=== PATIENT | male | born 1985 | race Hispanic/Latino ===

== ENCOUNTER 2024-03-27 15:02 | Emergency (ER) | payer OTHER ==
[~2024-03-27] VITALS: Ht 177.8 cm; Wt 92.5 kg
[2024-03-27 16:31] LABS: BASOPHILS # (AUTO) 0.06 K/uL (0.00-0.20); BASOPHILS % (AUTO) 0.6 % (0.0-5.0); HEMATOCRIT 42.8 % (42-54); IMMATURE GRANULOCYTE ABSOLUTE 0.05 K/uL (0-1); LYMPHOCYTES # (AUTO) 1.7 K/uL (1.0-4.8); LYMPHOCYTES % (AUTO) 16.8 % (21.0-51.0); MEAN CORPUSCULAR HEMOGLOBIN 27.3 pg (27.0-33.0); MEAN CORPUSCULAR HGB CONC 32.2 g/dL (32.0-36.0); MEAN CORPUSCULAR VOLUME 84.6 fL (79-99); MONOCYTES # (AUTO) 0.6 K/uL (0.1-1.0); MONOCYTES % (AUTO) 6.1 % (3.0-13.0); NEUTROPHILS # (AUTO) 7.5 K/uL (1.8-7.7); PLATELET COUNT (AUTO) 253 K/uL (130-400); RED BLOOD CELL COUNT(AUTO) 5.06 MIL/uL (4.50-6.20); RED CELL DISTRIBUTION WIDTH 12.5 % (11.0-15.5)
[2024-03-27 16:40] LABS: CREATININE 1.3 mg/dL (0.5-1.3)
[2024-03-27] MEDS: KETOROLAC 15MG/ML VIAL (15MG/ML) IM ONE (18:02)
[2024-03-27 18:22] LABS: APPEARANCE,URINE CLEAR (CLEAR); BILIRUBIN,URINE NEGATIVE (NEGATIVE); COLOR,URINE LIGHT-YELLOW (YELLOW); GLUCOSE, URINE (UA) NEGATIVE (NEGATIVE); KETONES,URINE NEGATIVE (NEGATIVE); LEUKOCYTE ESTERASE ,URINE NEGATIVE Leu/uL (NEGATIVE); NITRATE,URINE NEGATIVE (NEGATIVE); OCCULT BLOOD,URINE LARGE (NEGATIVE); PROTEIN,URINE 10 mg/dL (NEGATIVE); UROBILINOGEN,URINE 0.2 mg/dL (0.2-1.0)
[2024-03-27 18:23] LABS: ADD UA MICROSCOPIC YES
[2024-03-27 18:29] LABS: BACTERIA,URINE RARE /HPF (None Seen); MUCUS,URINE RARE LPF (None Seen); RBC,URINE >100 /HPF (0-1)
[2024-03-27] MEDS ORDERED: KETO10TA2 PO (18:52)
[2024-03-27] MEDS ORDERED: TAMS-1 PO (18:52)
[2024-03-27] MEDS ORDERED: ONDA-243 PO (18:52)
[2024-03-27] MEDS: MORPHINE 4 MG SYG IM ONE (18:56)
[2024-03-27] MEDS: TAMSULOSIN HCL 0.4 MG CAP.ER.24H PO ONE (18:56)
[2024-03-27] MEDS: ONDANSETRON ODT 4MG TAB SL ONE (18:57)
[2024-03-27] MEDS ORDERED: ONDANSETRON 4MG INJ IVP ONE (19:00)
[2024-03-27 19:15] VITALS: BP 138/70; PULSE 61; RESP 18; O2SAT 98
== END 2024-03-27 19:15 | disposition home or self-care (01) ==
LOC: EDH 15:02 → EEVIPCON 15:02 → EDH 19:15
DX: N13.2 Hydronephrosis with renal and ureteral calculous obstruction (principal); Z79.899 Other long term (current) drug therapy
CPT/HCPCS: 99285; 74176; 80048; 85025; 87086; 81001; 36415; 96372 ×2; J2270; J1885

== ENCOUNTER 2025-01-04 22:47 | Emergency (ER) | payer OTHER ==
[~2025-01-04] VITALS: Ht 177.8 cm; Wt 93.9 kg
[~2025-01-04 22:47] MED LIST: IOHEXOL-350 75 ML VIAL IV ONE; KETO10TA2 PO; ONDA-243 PO; TAMS-55 PO
--- NOTE | 2025-01-04 23:53 | ERN ---
General Chief Complaint: Painful Urination Stated Complaint: LOW BACK PAIN, PAINFUL UA Time Seen by MD: 23:03 Source: patient History of Present Illness Initial Comments Patient gives a history of what sounds like pyelonephritis. With extreme burning pain when he urinates and kidney stones and at times urinating purulent material from his penis. He does have associated fevers and chills and pain in his back that radiates around to the front and into his groin. He says he is not sexually active right now and doubts that this is from a sexually transmitted disease. Timing/Duration: 1 week Severity: moderate Allergies: Coded Allergies: No Known Drug Allergies (Unverified Allergy, Unknown, 03/27/24) Home Meds Active Scripts Ondansetron (Ondansetron Odt) 4 Mg Tab.rapdis, 4 MG PO TID for 5 Days, #15 TAB Prov:TRAMAINE XIONG 03/27/24 Tamsulosin HCl (Flomax) 0.4 Mg Cap.er.24h, 0.4 MG PO DAILY for 7 Days, #7 CAPSULE.DR Prov:TRAMAINE XIONG 03/27/24 Ketorolac Tromethamine (Ketorolac Tromethamine) 10 Mg Tablet, 10 MG PO Q6HPRN for 5 Days, #20 TAB Prov:TRAMAINE XIONG 03/27/24 Past Medical History Past Medical History: Bipolar, Kidney Stone, Other Medical History Other: CARDIAC CHAMBER DISORDER, pyelonephritis Past Surgical History: Other Surgical History Other: HEART MURMUR, CARDIAC Constitutional: (+) chills, (+) fever, (+) malaise EENTM: (-) eye pain, (-) blurred vision, (-) tearing, (-) double vision, (-) ear pain, (-) ear discharge, (-) nose pain, (-) nose congestion, (-) throat pain, (-) Throat swelling, (-) mouth pain, (-) tooth pain, (-) mouth swelling, (-) other documentation Respiratory: (-) cough, (-) orthopnea, (-) short of breath, (-) stridor, (-) wheezing, (-) other documentation Cardiovascular: (-) chest pain, (-) edema, (-) palpitations, (-) syncope, (-) dyspnea on exertion, (-) other documentation Gastrointestinal/Abdominal: (+) nausea, (+) vomiting Genitourinary: (+) dysuria, (+) hematuria Musculoskeletal: (-) Neck pain, (-) back pain, (-) Flank Pain, (-) joint pain, (-) joint swelling, (-) muscle pain, (-) muscle stiffness, (-) gout, (-) other documentation Physical Exam General Appearance: (+) mild distress Orientation: (+) alert, (+) oriented x 3 Head/Face Trauma: No Eye: bilateral eye normal inspection, bilateral eye PERRL, bilateral eye EOMI Ear, Nose, Throat: (+) hearing grossly normal, (+) normal ENT inspection, (+) moist mucous membraine Neck: (+) normal inspection, (+) supple Respiratory: (+) chest non-tender, (+) lungs clear Heart: (+) regular, (+) no gallop Vascular: (+) no edema, (+) normal peripheral pulse Gastrointestinal: (+) soft, (+) bowel sound present, (+) tender Results Laboratory and Microbiology Lab and Micro Result Laboratory Tests Test 01/04/25 23:45 01/05/25 01:49 White Blood Count 8.3 K/uL (4.8-10.8) Red Blood Count 5.26 MIL/uL (4.50-6.20) Hemoglobin 14.7 g/dL (14.0-18.0) Hematocrit 44.9 % (42-54) Mean Corpuscular Volume 85.4 fL (79-99) Mean Corpuscular Hemoglobin 27.9 pg (27.0-33.0) Mean Corpuscular Hemoglobin Concent 32.7 g/dL (32.0-36.0) Red Cell Distribution Width 12.2 % (11.0-15.5) Platelet Count 207 K/uL (130-400) Mean Platelet Volume 11.3 fL (7.5-10.5) H Immature Granulocyte % (Auto) 0.4 % (0-1) Neutrophils (%) (Auto) 72.7 % (40.0-77.0) Lymphocytes (%) (Auto) 20.4 % (21.0-51.0) L Monocytes (%) (Auto) 5.4 % (3.0-13.0) Eosinophils (%) (Auto) 0.6 % (0.0-8.0) Basophils (%) (Auto) 0.5 % (0.0-5.0) Neutrophils # (Auto) 6.1 K/uL (1.8-7.7) Lymphocytes # (Auto) 1.7 K/uL (1.0-4.8) Monocytes # (Auto) 0.5 K/uL (0.1-1.0) Eosinophils # (Auto) 0.05 K/uL (0.00-0.70) Basophils # (Auto) 0.04 K/uL (0.00-0.20) Absolute Immature Granulocyte (auto 0.03 K/uL (0-1) Nucleated Red Blood Cells 0.0 % (0.0-0.19) Sodium Level 141 mmol/L (136-145) Potassium Level 4.3 mmol/L (3.5-5.1) Chloride Level 106 mmol/L (101-111) Carbon Dioxide Level 28 mmol/L (21-32) Blood Urea Nitrogen 14 mg/dL (7-18) Creatinine 0.9 mg/dL (0.5-1.3) Glomerular Filtration Rate Calc 111 mL/min (>90) Random Glucose 104 mg/dL (70-105) Total Calcium 9.0 mg/dL (8.5-10.1) Urine Color LIGHT-YELLOW (YELLOW) Urine Appearance CLEAR (CLEAR) Urine pH 7.0 (5.0-8.0) Urine Specific Murray 1.014 (1.001-1.031) Urine Protein NEGATIVE mg/dL (NEGATIVE) Urine Glucose (UA) NEGATIVE mg/dL (NEGATIVE) Urine Ketones NEGATIVE mg/dL (NEGATIVE) Urine Occult Blood SMALL (NEGATIVE) H Urine Nitrate NEGATIVE (NEGATIVE) Urine Bilirubin NEGATIVE mg/dL (NEGATIVE) Urine Urobilinogen 0.2 mg/dL (0.2-1.0) Urine Leukocyte Esterase NEGATIVE Al/uL Urine RBC 2-5 /HPF (0-1) H Urine WBC None /HPF (0-1) Urine Bacteria RARE /HPF (None Seen) MDM I will order chemistry panel CBC urine analysis. I will give the patient some fluid. I will order a CT scan of his abdomen and pelvis with and without contrast. Your white blood cell count is normal as is your red blood cell count. Your urine analysis is normal and her chemistry panel is also normal. Do have to 1 mm stones right where the ureters meet your bladder causing mild hydronephrosis and there does seem to be some little bit of inflammation there I would be very careful and watch for signs and symptoms of a urinary tract infection fever chills burning while urinating increase in pain increased bleeding with the urination and if any of these things happen please come back to the emergency room. ED Course Orders Procedure Category Date Status Time Lactated Ringers PHA 01/04/25 Complete 1000ml (Lactated 23:34 Cbc With Differential LAB 01/04/25 Complete 23:35 Urinalysis Profile LAB 01/04/25 Complete 23:35 Basic Metabolic Panel LAB 01/04/25 Complete 23:35 Ct Abdomen/Pelvis CT 01/04/25 Taken W/Wo Contras 23:53 Iohexol (Omnipaque) PHA 01/05/25 Complete 00:59 Current Medications Medications (Trade) Dose Ordered Sig/Danielle Route PRN Reason Start Time Stop Time Status Last Admin Dose Admin Iohexol (Omnipaque) 75 ml STK-MED ONCE IV 01/05/25 00:59 01/05/25 01:04 DC Lactated Ringer's (Lactated Ringers 1000ml) 1,000 ml BOLUS STAT IV 01/04/25 23:34 01/04/25 23:36 DC 01/05/25 00:00 Vital Signs Date Time Temp Pulse Resp B/P (MAP) Pulse Ox O2 Delivery O2 Flow Rate FiO2 01/05/25 02:39 79 17 128/73 99 Room Air* 0 01/05/25 01:30 83 16 138/80 99 Room Air* 0 01/05/25 00:30 98.1 76 18 124/75 99 Room Air* 0 21 01/04/25 23:26 98.2 65 19 116/70 99 Room Air* 0 01/04/25 22:49 97.9 64 18 131/80 99 Room Air DX & DISP Disposition: Discharge Departure Impression: Primary Impression: Nephrolithiasis Condition: Stable Additional Instructions: Your white blood cell count is normal as is your red blood cell count. Your urine analysis is normal and her chemistry panel is also normal. Do have to 1 mm stones right where the ureters meet your bladder causing mild hydronephrosis and there does seem to be some little bit of inflammation there I would be very careful and watch for signs and symptoms of a urinary tract infection fever chills burning while urinating increase in pain increased bleeding with the urination and if any of these things happen please come back to the emergency room. The best thing for pain treatment is Motrin and Tylenol right now also keep the urine flowing drink plenty of fluids that will help you. Referrals: NONE (PCP) ERIKA METCALF MD January 04, 2025 23:53
[2025-01-04 23:55] LABS: BASOPHILS # (AUTO) 0.04 K/uL (0.00-0.20); BASOPHILS % (AUTO) 0.5 % (0.0-5.0); EOSINOPHILS # (AUTO) 0.05 K/uL (0.00-0.70); EOSINOPHILS % (AUTO) 0.6 % (0.0-8.0); HEMATOCRIT 44.9 % (42-54); IMMATURE GRANULOCYTE ABSOLUTE 0.03 K/uL (0-1); LYMPHOCYTES # (AUTO) 1.7 K/uL (1.0-4.8); LYMPHOCYTES % (AUTO) 20.4 % (21.0-51.0); MEAN CORPUSCULAR HEMOGLOBIN 27.9 pg (27.0-33.0); MEAN CORPUSCULAR HGB CONC 32.7 g/dL (32.0-36.0); MEAN CORPUSCULAR VOLUME 85.4 fL (79-99); MONOCYTES # (AUTO) 0.5 K/uL (0.1-1.0); MONOCYTES % (AUTO) 5.4 % (3.0-13.0); NEUTROPHILS # (AUTO) 6.1 K/uL (1.8-7.7); NEUTROPHILS % (AUTO) 72.7 % (40.0-77.0); PLATELET COUNT (AUTO) 207 K/uL (130-400); RED BLOOD CELL COUNT(AUTO) 5.26 MIL/uL (4.50-6.20); RED CELL DISTRIBUTION WIDTH 12.2 % (11.0-15.5); WHITE BLOOD COUNT (AUTO) 8.3 K/uL (4.8-10.8)
[2025-01-05] MEDS: LACTATED RINGERS 1000ML IV STA
[2025-01-05 00:03] LABS: CREATININE 0.9 mg/dL (0.5-1.3); POTASSIUM 4.3 mmol/L (3.5-5.1)
[2025-01-05 00:30] VITALS: TEMP 98.1
[2025-01-05] MEDS ORDERED: IOHEXOL-350 75 ML VIAL IV ONE (00:59)
[2025-01-05 02:03] LABS: APPEARANCE,URINE CLEAR (CLEAR); BILIRUBIN,URINE NEGATIVE (NEGATIVE); COLOR,URINE LIGHT-YELLOW (YELLOW); GLUCOSE, URINE (UA) NEGATIVE (NEGATIVE); KETONES,URINE NEGATIVE (NEGATIVE); LEUKOCYTE ESTERASE ,URINE NEGATIVE Leu/uL (NEGATIVE); NITRATE,URINE NEGATIVE (NEGATIVE); OCCULT BLOOD,URINE SMALL (NEGATIVE); PROTEIN,URINE NEGATIVE (NEGATIVE); UROBILINOGEN,URINE 0.2 mg/dL (0.2-1.0)
[2025-01-05 02:04] LABS: ADD UA MICROSCOPIC YES
[2025-01-05 02:07] LABS: BACTERIA,URINE RARE /HPF (None Seen); MUCUS,URINE RARE LPF (None Seen)
[2025-01-05 02:39] VITALS: BP 128/73; PULSE 79; RESP 17; O2SAT 99
--- NOTE | 2025-01-05 04:49 | HMCIMG ---
CT ABDOMEN/PELVIS W/WO CONTRAS HISTORY: Pyelonephritis COMPARISON: 03/27/2024 TECHNIQUE: Multiple sequential axial images of the abdomen and pelvis were obtained from the dome of the diaphragm through symphysis pubis. Patient was given 75 cc of Omnipaque through intravenous route. Oral contrast was not given. FINDINGS: No pleural effusion is seen bilaterally. There is no evidence of parenchymal disease or pulmonary nodule of the visualized lower lungs. Degenerative changes of the thoracolumbar spine are present. The heart is not enlarged. The liver, spleen, adrenal glands and pancreas are unremarkable. No hydronephrosis is seen on the left. Mild right hydronephrosis with two 1 mm renal stones in the right UV junction. Small right renal pelvic stones also seen. There are normal size retroperitoneal and mesenteric lymph nodes. No ascites is seen. No CT evidence of acute appendicitis is seen. Pelvic sidewalls are symmetric bilaterally. Bladder is well distended without wall thickening. IMPRESSION: 1. Mild right hydronephrosis with two 1 mm renal stones in the right UV junction. Small right renal pelvic stones also seen. CT was performed with one or more following dose reduction techniques: automated exposure control, adjustment of the mA and kv according to patient's size, or use of a iterative reconstruction technique.
== END 2025-01-05 03:15 | disposition home or self-care (01) ==
LOC: EDH 22:47 → EEVIPCON 22:47 → EDH 01-05 03:15
DX: N13.2 Hydronephrosis with renal and ureteral calculous obstruction (principal)
CPT/HCPCS: 99285; 74178; 80048; 85025; 81001; 36415; Q9967